=== PATIENT | male | born 1985 | race Caucasian/White ===

== ENCOUNTER 2017-04-22 09:11 | Emergency (ER) | payer SELFPAY ==
[~2017-04-22] VITALS: Ht 190.5 cm; Wt 123.8 kg
[2017-04-22 09:33] VITALS: BP 133/85
== END 2017-04-22 11:40 | disposition home or self-care (01) ==
LOC: ED 09:11
DX: S61.210A Laceration without foreign body of right index finger without damage to nail, initial encounter (principal); W26.8XXA Contact with other sharp object(s), not elsewhere classified, initial encounter; Y93.89 Activity, other specified; Y92.89 Other specified places as the place of occurrence of the external cause; Y99.8 Other external cause status
CPT/HCPCS: 90715; 99406; J0690; J2001

== ENCOUNTER 2017-04-25 08:02 | Emergency (ER) | payer MEDICAID ==
[~2017-04-25] VITALS: Ht 190.5 cm; Wt 124.3 kg
[2017-04-25 08:14] VITALS: BP 143/84
== END 2017-04-25 09:35 | disposition home or self-care (01) ==
LOC: ED 08:02
DX: Z48.01 Encounter for change or removal of surgical wound dressing (principal); S66.30 Unspecified injury of extensor muscle, fascia and tendon of other and unspecified finger at wrist and hand level; X58.XXXD Exposure to other specified factors, subsequent encounter; F17.200 Nicotine dependence, unspecified, uncomplicated

== ENCOUNTER 2017-05-02 11:22 | Emergency (ER) | payer MEDICAID ==
[2017-05-02 14:13] VITALS: BP 145/87
== END 2017-05-02 14:13 | disposition home or self-care (01) ==
LOC: ED 11:22
DX: S61.411D Laceration without foreign body of right hand, subsequent encounter (principal); X58.XXXD Exposure to other specified factors, subsequent encounter; Y92.89 Other specified places as the place of occurrence of the external cause; Y99.8 Other external cause status